=== PATIENT | male | born 1990 | race Caucasian/White ===

== ENCOUNTER 2016-11-28 16:44 | Emergency (ER) | payer OTHER ==
[~2016-11-28] VITALS: Ht 188 cm; Wt 86.3 kg
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
[2016-11-28 18:25] VITALS: BP 128/73; PULSE 74; RESP 19; O2SAT 100
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
== END 2016-11-28 19:40 ==
LOC: SED 16:44
DX: S00.93XA Contusion of unspecified part of head, initial encounter (principal); M79.641 Pain in right hand; Y04.0XXA Assault by unarmed brawl or fight, initial encounter; Y93.89 Activity, other specified; Y99.8 Other external cause status; Y92.149 Unspecified place in prison as the place of occurrence of the external cause; F17.210 Nicotine dependence, cigarettes, uncomplicated; Z04.8 Encounter for examination and observation for other specified reasons